=== PATIENT | male | born 1990 | race Caucasian/White ===

== ENCOUNTER 2018-03-27 12:53 | Day surgery (SDC) | payer OTHER ==
[~2018-03-27] VITALS: Ht 167.6 cm; Wt 64.8 kg
[2018-03-27 13:08] VITALS: BP 149/110; PULSE 76; TEMP 97.6
[2018-03-27] MEDS ORDERED: PRINIVIL10 MG PO (13:11)
[2018-03-27] MEDS ORDERED: LEVBID0.375 MG (15:35)
[2018-03-27] MEDS ORDERED: ZANTAC 150MG T150 MG PO (15:35)
[2018-03-27 15:45] VITALS: BP 146/86; PULSE 87
[2018-03-27 16:00] VITALS: BP 130/84; PULSE 101
[2018-03-27 16:15] VITALS: BP 138/103; PULSE 100
== END 2018-03-27 16:39 | disposition home or self-care (01) ==
LOC: SDCO 12:53
DX: K64.0 First degree hemorrhoids (principal); I10 Essential (primary) hypertension; R10.13 Epigastric pain
CPT/HCPCS: OP; J2250; J2405; J3010; J7030